=== PATIENT | male | born 1955 | race Caucasian/White ===

== ENCOUNTER 2018-03-09 14:19 | Emergency (ER) | payer BC, OTHER ==
[2018-03-09 15:32] VITALS: BP 132/98
--- NOTE | 2018-03-09 17:46 | EDM.PDOC ---
Scribed by Jayla Newell 03/09/18 5095 for Tomy Canseco MD ED HPI GENERAL MEDICAL PROBLEM - General Chief Complaint: Upper Extremity Injury/Pain Stated Complaint: dislocated flori [phone] Time Seen by Provider: 03/09/18 14:32 Source of Information: Reports: Patient, RN, RN Notes Reviewed History Limitations: Reports: No Limitations - History of Present Illness INITIAL COMMENTS - FREE TEXT/NARRATIVE: Patient presents to ER with complaint of right shoulder pain sustained from a ground [place] fall [place] Denies head injury or neck injury. Patient states that he felt the shoulder dislocated and popped back in. Denies any history of prior shoulder dislocation. Patient displays near full range of motion of the right shoulder as he is explaining his injury. Onset: Today Duration: Getting Worse Location: Reports: Upper Extremity, Right Quality: Reports: Ache Severity: Moderate Improves with: Reports: None Worsens with: Reports: None Associated Symptoms: Reports: No Other Symptoms - Related Data Allergies Allergy/AdvReac Type Severity Reaction Status Date / Time Sulfa (Sulfonamide Allergy Hives Verified 08/28/17 14:30 Antibiotics) Home Meds: Home Meds Lisinopril [Prinivil] 40 mg PO DAILY 04/11/15 [History] Omeprazole 20 mg PO DAILY 04/11/15 [History] atorvaSTATin [Lipitor] 40 mg PO BEDTIME 04/11/15 [History] Aspirin [Children's Aspirin] 1 tab PO DAILY 03/09/18 [History] Past Medical History HEENT History: Reports: Hard of Hearing, Other (See Below) Other HEENT History: wears glasses, top and bottom partial dentures, has bilateral hearing aides Cardiovascular History: Reports: High Cholesterol, Hypertension Respiratory History: Reports: COPD, SOB Other Respiratory History: no inhalers Gastrointestinal History: Reports: GERD Musculoskeletal History: Reports: Back Pain, Chronic, Fracture, Osteoarthritis, RA Other Musculoskeletal History: hx of fx ring finger right hand Neurological History: Reports: TIA Psychiatric History: Reports: Anxiety, Depression Endocrine/Metabolic History: Reports: Obesity/BMI 30+, Other (See Below) Oncologic (Cancer) History: Reports: Other (See Below) Other Oncologic History: skin cancer "frozen" on both arms (unknown type) - Past Surgical History GI Surgical History: Reports: Hernia, Inguinal, Other (See Below) Other GI Surgeries/Procedures: hx umbilical hernia repair, bilateral femoral hernia repair Neurological Surgical History: Reports: C-Spine, Lumbar Spine Other Neurological Surgeries/Procedures: hx back surgery, neck surgery x3 Musculoskeletal Surgical History: Reports: Shoulder Surgery Other Musculoskeletal Surgeries/Procedures:: left RTCR Social & Family History - Family History Family Medical History: Noncontributory Review of Systems - Review of Systems Review Of Systems: ROS reveals no pertinent complaints other than HPI. ED EXAM, GENERAL - Physical Exam Exam: See Below Exam Limited By: No Limitations General Appearance: Alert, WD/WN, No Apparent Distress Head: Atraumatic, Normocephalic Neck: Normal Inspection, Supple, Non-Tender, Full Range of Motion Respiratory/Chest: No Respiratory Distress Extremities: Normal Range of Motion (right shoulder but the patient reporting some tendernses and pain with range of motion. Normal capillary refill.), Other (right shoulder with mild tenderness with palpation laterally. No visible swelling,bruising or deformity. Skin is intact.). No: Joint Swelling Psychiatric: Normal Mood Skin Exam: Warm, Dry, Intact, Normal Color, No Rash Course - Vital Signs Last Recorded V/S: Last Vital Signs Temp 36.4 C 03/09/18 14:28 Pulse 107 H 03/09/18 14:28 Resp 18 03/09/18 14:28 BP 132/98 H 03/09/18 14:28 Pulse Ox 94 L 03/09/18 14:28 - Orders/Labs/Meds Orders: Active Orders 24 hr Category Date Time Status Shoulder Comp Rt [CR] Urgent Exams 03/09/18 14:31 Taken DME for Discharge [COMM] Routine Oth 03/09/18 17:37 Ordered - Radiology Interpretation Free Text/Narrative:: Right shoulder x-ray: No acute findings. See rad report. Departure - Departure Time of Disposition: 17:41 Disposition: Home, Self-Care 01 Condition: Good Clinical Impression: Injury of right rotator cuff Qualifiers: Encounter type: initial encounter Qualified Code(s): S46.001A - Unspecified injury of muscle(s) and tendon(s) of the rotator cuff of right shoulder, initial encounter - Discharge Information Instructions: Shoulder Pain, [id number] Forms: ED Department Discharge Additional Instructions: Use Ibuprofen (Advil/Motrin) 200mg: take 3 tablets by mouth every 6 hours as needed for pain. Take with food. Rest and ice right shoulder. Wear the shoulder sling for the next 3 to 4 days. May remove to shower and sleep. Remove sling at least 3 times a day to maintain range of motion in the right shoulder. Follow up in the clinic next week with your primary doctor. - My Orders Last 24 Hours: My Active Orders 03/09/18 14:31 Shoulder Comp Rt [CR] Urgent 03/09/18 17:37 DME for Discharge [COMM] Routine - Assessment/Plan Last 24 Hours: My Active Orders 03/09/18 14:31 Shoulder Comp Rt [CR] Urgent 03/09/18 17:37 DME for Discharge [COMM] Routine I have read and agree with the documentation that has been completed regarding this visit. By signing this record, I attest that the documentation was completed in my physical presence and is an accurate record of the encounter.
== END 2018-03-09 17:58 | disposition home or self-care (01) ==
LOC: DL.ED 14:19
DX: S46.001A Unspecified injury of muscle(s) and tendon(s) of the rotator cuff of right shoulder, initial encounter (principal); I10 Essential (primary) hypertension; E78.00 Pure hypercholesterolemia, unspecified; K21.9 Gastro-esophageal reflux disease without esophagitis; Z88.2 Allergy status to sulfonamides; Z79.899 Other long term (current) drug therapy; Z79.82 Long term (current) use of aspirin; W01.0XXA Fall on same level from slipping, tripping and stumbling without subsequent striking against object, initial encounter
CPT/HCPCS: 73030-RT; 99283